=== PATIENT | female | born 1975 | race Caucasian/White ===

== ENCOUNTER 2017-03-10 16:54 | Emergency (ER) | payer OTHER ==
[~2017-03-10] VITALS: Ht 152.4 cm; Wt 51.7 kg
[~2017-03-10 16:54] MED LIST: BACL10TA PO; METH2.5 PO; MS C60TA4 PO; PRED20 PO; XANA2TAB PO; XANA2TAB2 PO
[2017-03-10 16:59] VITALS: BP 113/82; PULSE 98; RESP 15; TEMP 98.4; O2SAT 96
--- NOTE | 2017-03-10 17:52 | RADRPT ---
EXAM DATE/TIME: 03/10/2017 17:29 [facility] COMPARISON: No previous studies available for comparison. INDICATIONS : Right hip pain post fall. MEDICAL HISTORY : Rheumatoid arthritis. Osteoarthritis. Renal calculi. PTSD, Depression, Anxiety SURGICAL HISTORY : Pacemaker. Bilateral total hip replacements, Right shoulder surgery, Endometriosis, Hernia repair, Breast augmentation ENCOUNTER: Initial ACUITY: 1 day PAIN SCORE: 8/10 LOCATION: Right pelvis FINDINGS: There is previous bilateral hip replacement. No acute fracture. No dislocation. CONCLUSION: 1. Previous bilateral hip replacement. No acute fracture. Rhett Barbour MD on March 10, 2017 at 17:49 Board Certified Radiologist. This report was verified electronically.
--- NOTE | 2017-03-10 18:08 | PD ---
HPI Chief Complaint: Fall Time Seen by Provider: 17:15 Travel History International Travel<30 days: No Contact w/Intl Traveler<30days: No Traveled to known affect area: No History of Present Illness HPI 42-year-old female with a history of osteoarthritis and rheumatoid arthritis presents to the emergency room for evaluation of right posterior hip pain, headache, and lower neck pain after falling 2 days ago. Patient states her hip locked up which caused her to lose her balance and fall forward. She was protecting her arm so she landed directly on her face. Patient reports possible loss of consciousness. She scooted to her living room and lifted herself up using the wall. Her daughter came by shortly afterward and brought her to her doctor's appointment at pain management office. The pain management physician didn't seem concerned. The patient states she believes the doctor thought she was trying to get more medication. Patient states after 2 days of pain, she is concerned about her right hip which appears more swollen than normal. She has history of bilateral hip replacements from rheumatoid arthritis. She has been ambulatory since falling. She is not on blood thinners. She has a mild headache and reports increased wakefulness and confusion. No nausea or vomiting. She also reports pain in bilateral pain to fingers and little toes but states she is not concerned with breaking them. PFSH Past Medical History Arthritis: Yes (RHEUMATOID ARTHRITIS X 20 YRS, OSTEOARTHRITIS) Autoimmune Disease: Yes Blood Disorders: No Anxiety: Yes Depression: Yes Cancer: No Cardiovascular Problems: No Diabetes: No Diminished Hearing: No Endocrine: No Fibromyalgia: Yes Gastrointestinal Disorders: No Genitourinary: Yes (kidney stones many time) Headaches: Yes Hepatitis: No Hiatal Hernia: No Immune Disorder: Yes (RA) Implanted Vascular Access Dvce: Yes Kidney Stones: Yes Musculoskeletal: Yes (general arthritis juevnille rheumatoid arthritis) Neurologic: Yes (numbness left knee down and tingling) Psychiatric: Yes (OCD, PTSD) Reproductive: Yes (ENDOMETRIOSIS and hx of fibroid cyst) Respiratory: Yes (respiratory due to environmental allergies) Immunizations Current: No Thyroid Disease: No Influenza Vaccination: No ?: Not Menopausal: No Ovarian Cysts: Yes Past Surgical History Abdominal Surgery: Yes (hernia repair) AICD: No Arteriovenous Shunt: No Cardiac Surgery: No Ear Surgery: No Endocrine Surgery: No Eye Surgery: No Genitourinary Surgery: No Gynecologic Surgery: Yes ( LAPROSCOPY, D&C exp lap) Insulin Pump: No Joint Replacement: Yes (BI-LAT HIP, BI-LAT SHOULDER) Oral Surgery: No Pacemaker: Yes Thoracic Surgery: Yes (breast augmentation) Other Surgery: Yes (BI-LAT HIPS, right-LAT SHOULDERS, ) Social History Alcohol Use: No Tobacco Use: No Substance Use: Yes (H/O) Allergies-Medications (Allergen,Severity, Reaction): Coded Allergies: Adhesives (Verified Allergy, Severe, TEARS SKIN, 03/10/17) tears skin Soma (Verified Allergy, Severe, THROAT Swelling, 03/10/17) "MY THROAT SWELLS UP AND I CANT BREATHE" Reported Meds & Prescriptions Reported Meds & Active Scripts Active Reported Minipress (Prazosin HCl) 5 Mg Cap 5 Mg PO BID Klonopin (Clonazepam) 1 Mg Tab 1 Mg PO BID Prozac (Fluoxetine HCl) 20 Mg Cap 20 Mg PO DAILY Prednisone 5 Mg Tab 5 Mg PO DAILY Morphine ER (Morphine Sulfate) 60 Mg Tab 60 Mg PO DAILY Baclofen 10 Mg Tab 10 Mg PO TID Review of Systems Except as stated in HPI: all other systems reviewed are Neg Physical Exam Narrative GENERAL: Well-developed, well-nourished female in no acute distress. Afebrile. Ambulatory with a cane. SKIN: Warm and dry. No erythema or ecchymosis. HEAD: Atraumatic. Normocephalic. No rosa sign or raccoon eyes. EYES: PERRL, EOMI, no discharge or injection. No scleral icterus. ENT: Mucosa pink and moist. No erythema or exudates. No uvular edema. No uvular , palatal, or tonsillar deviation. Airway patent. EARS: Bilateral pinnae and external canals appear within normal limits. Bilateral tympanic membranes without erythema, dullness or perforation. No hemotympanum. NECK: Trachea midline. No JVD. No midline tenderness. Full range of motion. CARDIOVASCULAR: Regular rate and rhythm. No murmur appreciated. RESPIRATORY: No accessory muscle use. Clear to auscultation. Breath sounds equal bilaterally. No crackles, rales, wheezes, or rhonchi. BACK: No CVA tenderness. No rash. Mild to moderate point tenderness on palpation of the thoracic spine. Full range of motion of the back. NEUROLOGICAL: Awake and alert. Cranial nerves 2 through 12 intact. Motor grossly within normal limits. Normal speech. Strength 5/5 and equal in upper and lower extremities. PSYCHIATRIC: Appropriate mood and affect; insight and judgment normal. Data Data Last Documented VS Vital Signs Date Time Temp Pulse Resp B/P Pulse Ox O2 Delivery O2 Flow Rate FiO2 03/10/17 16:59 98.4 98 15 113/[address] Brain W/O Iv Contrast(Rout) (03/10/17 ) Ct Cerv Spine W/O Contrast (03/10/17 ) Hip, Uni(Ap&Lat) W Ap Pelvis (03/10/17 ) MDM Medical Decision Making Medical Screen Exam Complete: Yes Emergency Medical Condition: Yes Medical Record Reviewed: Yes Differential Diagnosis Concussion, brain injury, headache, hip pain, sprain, fracture Narrative Course 42-year-old female with history of juvenile rheumatoid arthritis presents to the emergency room for evaluation of multiple complaints after trip and fall 2 days ago. Patient states her hip locked up and she fell forward landing directly on her face. She reports possible loss of consciousness and has had mild headache, confusion, and irritability since then. She also reports neck pain worse with range of motion. Patient denies upper or lower extremity paresthesias. She has been ambulatory since onset of symptoms. No focal neurological deficits. She is concerned that her right hip has become dislocated as she has history of bilateral total hip replacements. Patient also reports bilateral pinky finger and toe pain that she does not need evaluated at this time. CT of the head and neck are negative for acute abnormality, patient made aware of chronic C-spine findings. X-ray of the hip is negative for acute abnormality. Given patient has been ambulatory since onset, I'm not concerned for occult fracture. Right lower extremity is neurovascularly intact. She requested a soft neck brace and was discharged with one for comfort. She was told to continue her pain management prescriptions and follow up with her primary care physician or return for worsening symptoms. She understands and agrees to plan. Diagnosis Primary Impression: Contusion of right hip Qualified Code: S70.01XA - Contusion of right hip, initial encounter Additional Impressions: Concussion Qualified Code: S06.0X1A - Concussion, with LOC of 30 min or less, initial encounter Headache Qualified Code: G44.319 - Acute post-traumatic headache, not intractable Cervical strain, acute Qualified Code: S16.1XXA - Cervical strain, acute, initial encounter Referrals: Primary Care Physician Patient Instructions: Contusion in Adults (ED), General Instructions, Post Concussion Syndrome (ED) Additional Instructions: Rest and drink plenty of fluids. Take ibuprofen with food as directed, as needed for pain. Apply ice to the affected area for 20 minutes at a time, as needed for pain and swelling. Follow-up with a primary care physician. Return to the emergency room for worsening symptoms. Disposition: 01 DISCHARGE HOME Condition: Stable Marissa Tinajero Mar 10, 2017 18:08
[2017-03-10] MEDS ORDERED: PROZ20CA11 PO (18:24)
[2017-03-10] MEDS ORDERED: PRED5TAB PO (18:24)
[2017-03-10] MEDS ORDERED: MORP1TAB26 PO (18:24)
[2017-03-10] MEDS ORDERED: PRAZ5 PO (18:24)
[2017-03-10] MEDS ORDERED: BACL10TA PO (18:24)
[2017-03-10] MEDS ORDERED: CLON1 PO (18:24)
--- NOTE | 2017-03-10 18:32 | RADRPT ---
EXAM DATE/TIME: 03/10/2017 17:35 [facility] COMPARISON: No previous studies available for comparison. INDICATIONS : Trauma. Fall. Head and neck pain. RADIATION DOSE: 25.67 CTDIvol (mGy) MEDICAL HISTORY : Rheumatoid arthritis. SURGICAL HISTORY : Bilateral hip replacement. Right shoulder surgery. ENCOUNTER: Initial ACUITY: 2 days PAIN SCALE: 8/10 LOCATION: Bilateral neck TECHNIQUE: Volumetric scanning of the cervical spine was performed. Multiplanar reconstructions in the sagittal, coronal and oblique axial planes were performed. Using automated exposure control and adjustment o f the mA and/or kV according to patient size, radiation dose was kept as low as reasonably achievable to obtain optimal diagnostic quality images. DICOM format image data is available electronically f or review and comparison. 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 Vertebral body heights are maintained. No fracture or disloc ation. ALIGNMENT: Loss of the natural lordosis with a gentle kyphosis. C2-C3: There is a central bulge. No abutment of the cord. Neural foramina and central canal are patent. C3-C4: Mild central bulge. No abutment of the cord or central canal stenosis. Bony uncovertebral hypertrophy generates mild narrowing of the right neural foramen. The left is patent. C4-C5: A mild broad-based disc bulge. No abutment of the cord or central canal stenosis. Neural foramina are patent bilaterally. C5-C6: The bony spinal canal is normal in size. No evidence of disc bulge or herniation. The neural forami na are bilaterally patent. C6-C7: The bony spinal canal is normal in size. No evidence of disc bulge or herniation. The neural forami na are bilaterally patent. C7-T1: The bony spinal canal is normal in size. No evidence of disc bulge or herniation. The neural forami na are bilaterally patent. CONCLUSION: 1. No fracture or dislocation. 2. Congenital fusion of C1 and C2. 3. Degenerative changes as detailed above. No neural impingement or central canal stenosis observed. Jono Huynh Jr., MD on March 10, 2017 at 18:27 Board Certified Radiologist. This report was verified electronically.
--- NOTE | 2017-03-10 19:29 | RADRPT ---
EXAM DATE/TIME: 03/10/2017 17:35 [facility] COMPARISON: No previous studies available for comparison. INDICATIONS : Trauma. Fall. Head and neck pain. RADIATION DOSE: 65.02 CTDIvol (mGy) MEDICAL HISTORY : Rheumatoid arthritis. SURGICAL HISTORY : Bilateral hip replacement. Right shoulder surgery. ENCOUNTER: Initial ACUITY: 2 days PAIN SCALE: 8/10 LOCATION: cranial TECHNIQUE: Multiple contiguous axial images were obtained of the head. Using automated exposure control and adj ustment of the mA and/or kV according to patient size, radiation dose was kept as low as reasonably a chievable to obtain optimal diagnostic quality images. DICOM format image data is available electro nically for review and comparison. FINDINGS: CEREBRUM: The ventricles are normal for age. No evidence of midline shift, mass lesion, hemorrhage or acute in farction. No extra-axial fluid collections are seen. POSTERIOR FOSSA: The cerebellum and brainstem are intact. The 4th ventricle is midline. The cerebellopontine angle i s unremarkable. EXTRACRANIAL: The visualized portion of the orbits is intact. SKULL: The calvaria is intact. No evidence of skull fracture. CONCLUSION: Normal examination. Jono Huynh Jr., MD on March 10, 2017 at 19:26 Board Certified Radiologist. This report was verified electronically.
== END 2017-03-10 19:57 | disposition home or self-care (01) ==
LOC: PHEFT 16:54
DX: S70.01XA Contusion of right hip, initial encounter (principal); S06.0X1A Concussion with loss of consciousness of 30 minutes or less, initial encounter; G44.319 Acute post-traumatic headache, not intractable; S16.1XXA Strain of muscle, fascia and tendon at neck level, initial encounter; R41.0 Disorientation, unspecified; W01.0XXA Fall on same level from slipping, tripping and stumbling without subsequent striking against object, initial encounter; Z87.39 Personal history of other diseases of the musculoskeletal system and connective tissue; Z86.2 Personal history of diseases of the blood and blood-forming organs and certain disorders involving the immune mechanism; Z86.59 Personal history of other mental and behavioral disorders; Z87.448 Personal history of other diseases of urinary system; Z86.69 Personal history of other diseases of the nervous system and sense organs; Z87.42 Personal history of other diseases of the female genital tract
CPT/HCPCS: 70450; 72125; 73502

== ENCOUNTER 2018-03-09 22:42 | Emergency (ER) | payer SELFPAY ==
[~2018-03-09] VITALS: Ht 152.4 cm; Wt 50.1 kg
[~2018-03-09 22:42] MED LIST changes: +CLON1 PO; -METH2.5 PO; +MORP1TAB26 PO; -MS C60TA4 PO; +PRAZ5 PO; -PRED20 PO; +PRED5TAB PO; +PROZ20CA11 PO; -XANA2TAB PO; -XANA2TAB2 PO
[2018-03-09 22:50] VITALS: BP 104/71; PULSE 95; RESP 18; TEMP 98; O2SAT 97
[2018-03-09 23:18] LABS: BILIRUBIN, URINE NEG (NEG); BLOOD, URINE LARGE (NEG); GLUCOSE,URINE NEG (NEG); KETONE, URINE NEG (NEG); NITRITE,URINE POS (NEG); URINE COLOR YELLOW (YELLW/STRAW); URINE LEUKOCYTE ESTERASE MOD (NEG)
[2018-03-09 23:29] LABS: MUCUS URINE FEW /lpf (OCC)
[2018-03-09 23:30] LABS: WHITE BLOOD CELL CLUMPS FEW
[2018-03-09 23:31] LABS: BACTERIA, URINE MANY /hpf; SQUAMOUS EPITHELIAL CELL URINE 0-5 /hpf (0-5)
[2018-03-09] MEDS ORDERED: diphenhydrAMINE HCL 50 MG/ML VIAL IV PUSH ONE (23:45)
[2018-03-09] MEDS ORDERED: SODIUM CHLOR 0.9% 1000 ML INJ 1,000 ML IV ONE (23:45)
[2018-03-09] MEDS ORDERED: PROCHLORPERAZINE INJ 10 MG/2 ML VIAL IV PUSH ONE (23:45)
[2018-03-09] MEDS ORDERED: cefTRIAXone INJ 1,000 MG in SODIUM CHLORIDE 0.9% INJ 100 ML IV ONE (23:45)
[2018-03-09] MEDS ORDERED: MORPHINE SULFATE 4 MG/ML INJ IV ONE (23:45)
--- NOTE | 2018-03-09 23:58 | PD ---
HPI . Flank pain Chief Complaint: Flank/Kidney Pain Time Seen by Provider: 22:53 Travel History International Travel<30 days: No Contact w/Intl Traveler<30days: No Traveled to known affect area: No History of Present Illness HPI Patient presents with chief complaint of right flank pain. Onset was 2 days ago. She reports UTI symptoms for the last few weeks. She never said exactly what those symptoms were. She states that she has been treating it with increased fluids and cranberry juice. She had the onset of the flank pain 2 days ago associated with a fever. Has gotten progressively worse over the last 24 hours. Her pain is rated 6/10. PFSH Past Medical History Hx Anticoagulant Therapy: Yes (81 ASA) Arthritis: Yes (RHEUMATOID ARTHRITIS X 20 YRS, OSTEOARTHRITIS) Autoimmune Disease: Yes Blood Disorders: No Anxiety: Yes Depression: Yes Cancer: No Cardiovascular Problems: No Cerebrovascular Accident: Yes Diabetes: No Diminished Hearing: No Endocrine: No Fibromyalgia: Yes Gastrointestinal Disorders: No Genitourinary: Yes (kidney stones many time) Headaches: Yes Hepatitis: No Hiatal Hernia: No Immune Disorder: Yes (RA) Implanted Vascular Access Dvce: Yes Kidney Stones: Yes Musculoskeletal: Yes (general arthritis [place] rheumatoid arthritis) Neurologic: Yes (numbness left knee down and tingling) Psychiatric: Yes (OCD, PTSD) Reproductive: Yes (ENDOMETRIOSIS and hx of fibroid cyst) Respiratory: Yes (respiratory due to environmental allergies) Immunizations Current: No Thyroid Disease: No Menopausal: No Ovarian Cysts: Yes Past Surgical History Abdominal Surgery: Yes (hernia repair) AICD: No Arteriovenous Shunt: No Cardiac Surgery: No Ear Surgery: No Endocrine Surgery: No Eye Surgery: No Genitourinary Surgery: No Gynecologic Surgery: Yes ( LAPROSCOPY, D&C exp lap) Insulin Pump: No Joint Replacement: Yes (BI-LAT HIP, BI-LAT SHOULDER) Oral Surgery: No Pacemaker: Yes Thoracic Surgery: Yes (breast augmentation) Other Surgery: Yes (BI-LAT HIPS, right-LAT SHOULDERS, ) Social History Alcohol Use: No Tobacco Use: No Substance Use: Yes (H/O) Allergies-Medications (Allergen,Severity, Reaction): Coded Allergies: adhesive (Unverified Allergy, Severe, TEARS SKIN, 03/09/18) tears skin carisoprodol (Unverified Allergy, Severe, THROAT Swelling, 03/09/18) "MY THROAT SWELLS UP AND I CANT BREATHE" Reported Meds & Prescriptions Reported Meds & Active Scripts Active Reported Minipress (Prazosin HCl) 5 Mg Cap 5 Mg PO BID Klonopin (Clonazepam) 1 Mg Tab 1 Mg PO BID Prozac (Fluoxetine HCl) 20 Mg Cap 20 Mg PO DAILY Prednisone 5 Mg Tab 5 Mg PO DAILY Morphine ER (Morphine Sulfate) 60 Mg Tab 60 Mg PO DAILY Baclofen 10 Mg Tab 10 Mg PO TID Review of Systems Except as stated in HPI: all other systems reviewed are Neg General / Constitutional: Positive: Fever, Chills Gastrointestinal: No: Nausea, Vomiting Genitourinary: Positive: Flank Pain Physical Exam Narrative GENERAL: Awake and alert and in no acute distress. SKIN: Warm and dry. Normal color and turgor. HEAD: Normocephalic/atraumatic. EYES: Pupils are equal. Extraocular movements are intact. NECK: Normal range of motion. Supple. CARDIOVASCULAR: Regular rate and rhythm. RESPIRATORY: Nonlabored respirations. Normal sats. ABDOMEN: Diffusely tender. : Right CVA tenderness. MUSCULOSKELETAL: She walks with a cane and has an obvious deformity of the right shoulder with surgical scars. NEUROLOGICAL: A and O 3. Nonfocal. PSYCHIATRIC: Appropriate mood and affect. Data Data Last Documented VS Vital Signs Date Time Temp Pulse Resp B/P (MAP) Pulse Ox O2 Delivery O2 Flow Rate FiO2 03/09/18 22:50 98.0 95 18 104/71 (82) 97 Orders Orders Urinalysis - C+S If Indicated (03/09/18 22:53) Ct Abd/Pel W/O Iv Contrast (03/09/18 23:16) Ed Urine Pregnancytest Poc (03/09/18 23:16) Cath For Specimen (03/09/18 23:16) Urine Culture (03/09/18 22:30) ^ Saline Lock (03/09/18 23:33) Ceftriaxone Inj (Rocephin Inj) (03/09/18 23:45) Sodium Chlor 0.9% 1000 Ml Inj (Ns 1000 M (03/09/18 23:45) Morphine Inj (Morphine Inj) (03/09/18 23:45) Prochlorperazine Inj (Compazine Inj) (03/09/18 23:45) Diphenhydramine Inj (Benadryl Inj) (03/09/18 23:45) Ceftriaxone Inj (Rocephin Inj) (03/10/18 00:30) Lidocaine Pf 1% Inj (Xylocaine-Mpf 1% In (03/10/18 00:30) Oxycodone-Acetamin 5-325 Mg (Percocet (03/10/18 00:30) Tamsulosin (Flomax) (03/10/18 00:30) Promethazine (Phenergan) (03/10/18 00:30) Labs Laboratory Tests Test 03/09/18 22:30 Urine Color YELLOW Urine Turbidity CLOUDY Urine pH 6.0 Urine Specific [place] 1.015 Urine Protein 30 mg/dL Urine Glucose (UA) NEG mg/dL Urine Ketones NEG mg/dL Urine Occult Blood LARGE Urine Nitrite POS Urine Bilirubin NEG Urine Urobilinogen 0.2 MG/DL Urine Leukocyte Esterase MOD Urine RBC 25-49 /hpf Urine WBC 50-99 /hpf Urine WBC Clumps FEW Urine Squamous Epithelial Cells 0-5 /hpf Urine Bacteria MANY /hpf Urine Mucus FEW /lpf Microscopic Urinalysis Comment CULTURE INDICATED MDM Medical Decision Making Medical Screen Exam Complete: Yes Emergency Medical Condition: Yes Medical Record Reviewed: Yes (Juvenile rheumatoid arthritis 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 She has had bilateral total hip replacements.) Differential Diagnosis Differential diagnosis of flank pain includes but is not limited to kidney stone , pyelonephritis, musculoskeletal pain, PE, AAA Narrative Course Patient presents with chief complaint of right flank pain. She states she has had symptoms of urinary tract infection prior to the onset of flank pain. In addition to flank pain, she has also had a fever. UA>>+ nitrite, mod LE, 25-49 RBCs, 50-99 WBCs, many bact. An IV has been started. She will be given a fluid bolus. She will be given a dose of IV Rocephin. She is being given Compazine, Benadryl and morphine for her discomfort. Last Impressions Abdomen/Pelvis CT 03/09/18 [id number] Signed Impressions: CONCLUSION: 1. 4 mm nonobstructing right renal calculus 2. 2. Smaller nonobstructing left renal calculi. 3. Bilateral hip arthroplasties with significant streak artifact obscuring por tions of the distal ureters and pelvis which cannot be evaluated. Does not have any ureteral calculi. She does not have hydronephrosis. There is no perinephric stranding. This patient has very poor IV access. Attempts at IV access have been aborted. She will be given a shot of Rocephin. She will be given a dose of Percocet and oral Phenergan. She will be discharged home with prescription for Keflex and Elbert. [employer] has been queried and reviewed. Diagnosis Primary Impression: Urinary tract infection Qualified Codes: N39.0 - Urinary tract infection, site not specified Patient Instructions: General Instructions, Urinary Tract Infection in Women ( [place]) Med/Other Pt SpecificInfo: Prescription(s) given Scripts Hydrocodone-Acetaminophen (Elbert) 5 Mg-325 Mg Tab 1 TAB PO Q4H Y for PAIN, #12 TAB 0 Refills Prov: Page Sutherland MD 03/10/18 Cephalexin (Keflex) 500 Mg Capsule 500 MG PO TID for Infection for 7 Days, CAP 0 Refills Prov: Page Sutherland MD 03/10/18 Disposition: 01 DISCHARGE HOME Condition: Stable Page Sutherland MD Mar 09, 2018 23:58
--- NOTE | 2018-03-10 00:06 | RADRPT ---
EXAM DATE: 03/09/2018 11:58 PM EDT AGE/SEX: 43 years / Female INDICATIONS: Right flank pain, history of kidney stones. CLINICAL DATA: This is the patient's initial encounter. Patient reports that signs and symptoms have been present for 2 weeks and indicates a pain score of 6/10. MEDICAL/SURGICAL HISTORY: Cerebrovascular disease. Renal calculi. Pacemaker. hernia repair RADIATION DOSE: 5.77 CTDI (mGy) COMPARISON: No prior exams available for comparison. TECHNIQUE: Multiple contiguous axial images were obtained through the abdomen. Images were obtained using multiple row detector helical technique. Using automated exposure control and adjustment of the mA and/or kV according to patient size, radiation dose was kept as low as reasonably achievable to o btain optimal diagnostic quality images. DICOM format image data is available electronically for rev iew and comparison. FINDINGS: Lower Lungs: The visualized lower lungs are clear. Liver: The liver has a homogeneous density without space-occupying lesion. There is no dilation of th e biliary tree. Spleen: Homogeneous density without enlargement. Pancreas: Unremarkable without mass or calcification. Kidneys: Normal in size and shape. No evidence of mass or hydronephrosis. There is a single 4 mm rig ht renal calculus and 2 small left renal calculi measuring approximately 3 less than 1 mm. The visual ized portions of the ureters are within normal limits. There is no ureteral calculi identified. The d istal ureters are obscured by streak artifact from the hip arthroplasties. Adrenal Glands: Unremarkable. Aorta: The aorta and proximal iliac vessels are grossly unremarkable without aneurysmal dilation. Bowel/Mesentery: The bowel loops are grossly unremarkable. The cecum and sigmoid colon have a normal configuration. Abdominal Wall: Intact. Retroperitoneum: No evidence of adenopathy in the retrocrural, para-aortic, or deep pelvic regions. Bladder: Contours are smooth. Reproductive Organs: No abnormal masses or calcifications seen. Inguinal: The inguinal region is unremarkable without evidence of adenopathy. Bony Structures: Status post bilateral hip arthroplasty with significant streak artifact through the pelvis obscuring portions which cannot be evaluated. CONCLUSION: 1. 4 mm nonobstructing right renal calculus 2. 2. Smaller nonobstructing left renal calculi. 3. Bilateral hip arthroplasties with significant streak artifact obscuring portions of the distal ur eters and pelvis which cannot be evaluated. Electronically signed by: Giacomo Banks MD 03/10/2018 12:04 AM EDT
[2018-03-10] MEDS ORDERED: FENT50DI T-DERMAL (00:22)
[2018-03-10] MEDS ORDERED: ASPI-516 CHEW (00:22)
[2018-03-10] MEDS ORDERED: CEPH-460 PO (00:24)
[2018-03-10] MEDS ORDERED: NORC5TAB PO (00:24)
[2018-03-10] MEDS ORDERED: PROMETHAZINE HCL 25 MG TAB PO ONE (00:30)
[2018-03-10] MEDS ORDERED: TAMSULOSIN HCL 0.4 MG CAP PO ONE (00:30)
[2018-03-10] MEDS ORDERED: oxyCODONE/ACETAMINOPHEN 5 MG/325 MG TAB PO ONE (00:30)
[2018-03-10] MEDS ORDERED: LIDOCAINE HCL 1% PF 30 ML VIAL XX ONE (00:30)
[2018-03-10] MEDS ORDERED: PROM25TA10 PO (01:02)
[2018-03-10 01:10] VITALS: BP 104/61
== END 2018-03-10 01:11 | disposition home or self-care (01) ==
LOC: PHED 22:42
DX: N39.0 Urinary tract infection, site not specified (principal); B96.20 Unspecified Escherichia coli [E. coli] as the cause of diseases classified elsewhere; N20.0 Calculus of kidney; R50.9 Fever, unspecified; M06.9 Rheumatoid arthritis, unspecified; M79.7 Fibromyalgia; F32.9 Major depressive disorder, single episode, unspecified; F43.10 Post-traumatic stress disorder, unspecified; F42.9 Obsessive-compulsive disorder, unspecified; Z87.442 Personal history of urinary calculi; Z86.73 Personal history of transient ischemic attack (TIA), and cerebral infarction without residual deficits; Z95.0 Presence of cardiac pacemaker; Z88.8 Allergy status to other drugs, medicaments and biological substances; Z79.899 Other long term (current) drug therapy
CPT/HCPCS: 74176; 81001; 84703; 87077; 87086; 87186; 96372; 99284; J0696; Q0169